=== PATIENT | male | born 1950 | race Caucasian/White ===

== ENCOUNTER 2023-07-09 16:18 | Inpatient (IN) | payer MEDICARE ==
[~2023-07-09] VITALS: Ht 185.4 cm; Wt 91.8 kg
[~2023-07-09 16:18] MED LIST: ASPI-612 PO; DILT-36 PO; LISI40TA13 PO; METF-900 PO; PRAV20TA60 PO
[2023-07-09 17:16] LABS: BASOPHILS # (AUTO) 0.2 X10'3 (0-0.2); BASOPHILS % (AUTO) 0.9 % (0-1); EOSINOPHILS % (AUTO) 0.1 % (0-6); HEMATOCRIT 39.1 % (42.0-52.0); HEMOGLOBIN 13.3 g/dl (14.0-17.9); LYMPHOCYTES # (AUTO) 2.1 X10'3 (1.1-4.8); LYMPHOCYTES % (AUTO) 10.5 % (21-51); MEAN CORPUSCULAR HEMOGLOBIN 30.9 PG (27.0-31.0); MEAN CORPUSCULAR VOLUME 90.8 FL (78-98); MEAN PLATELET VOLUME 8.1 FL (7.4-10.4); MONOCYTES # (AUTO) 1.8 X10'3 (0-0.9); MONOCYTES % (AUTO) 8.8 % (2-12); NEUTROPHILS # (AUTO) 15.8 X10'3 (1.8-7.7); NEUTROPHILS % (AUTO) 79.7 % (42-75); PLATELET COUNT 435 X10'3 (140-440); RED BLOOD COUNT 4.31 X10'6 (4.70-6.10); RED CELL DISTRIBUTION WIDTH 12.5 % (11.5-14.5); WHITE BLOOD COUNT 19.8 X10'3 (4.5-11.0)
[2023-07-09 17:31] LABS: ALANINE AMINOTRANSFERASE 85 U/L (12-78); ALBUMIN/GLOBULIN RATIO 0.7 (1.1-1.5); ALKALINE PHOSPHATASE 109 IU/L (46-116); ANION GAP 18 (8-16); ASPARTATE AMINO TRANSFERASE 45 U/L (10-37); BILIRUBIN,TOTAL 1.1 MG/DL (0.1-1.0); BLOOD UREA NITROGEN 69 MG/DL (7-18); BUN/CREATININE RATIO 29.2 (10.0-20.0); CALCIUM 8.8 MG/DL (8.5-10.1); CHLORIDE 99 MMOL/L (99-107); CREATININE 2.36 MG/DL (0.60-1.10); GLUCOSE 169 MG/DL (70-104); LIPASE 11 U/L (16-77); POTASSIUM 4.2 MMOL/L (3.5-5.1); SODIUM 131 MMOL/L (135-145); TOTAL PROTEIN 7.1 G/DL (6.4-8.2); eCRCL 31 ML/MIN; eGFR 27 ML/MIN
[2023-07-09 18:31] LABS: PLATELET ESTIMATE NORMAL; TOTAL CELLS COUNTED 100
[2023-07-09] MEDS ORDERED: normal saline 1000ml 1,000 ML IV ONE (22:40)
[2023-07-09] MEDS ORDERED: ondansetron/PF 4mg/2ml inj IV ONE (22:40)
[2023-07-09] MEDS ORDERED: morphine 4 MG/ML inj SYRINge IV ONE (22:40)
[2023-07-09] MEDS ORDERED: piperacillin/tazo 4.5gm/100ml 100 ML IV SCH (23:00)
[2023-07-10 01:43] LABS: BILIRUBIN,URINE SMALL (Neg); CLARITY,URINE SLIGHTLY CLOUDY (Clear); COLOR,URINE YELLOW (Yellow); GLUCOSE, URINE NEGATIVE (Neg); KETONES,URINE TRACE mg/dl (Neg); LEUKOCYTE ESTERASE ,URINE NEGATIVE (Neg); NITRITES, URINE NEGATIVE (Neg); OCCULT BLOOD,URINE TRACE-INTACT (Neg); PH,URINE 5.5 (4.8-8.0); PROTEIN,URINE >=300 mg/dl (Neg); UROBILINOGEN,URINE 0.2 E.U/dL (0.2-1.0)
[2023-07-10 01:48] LABS: UA COLLECTION TYPE VOIDED
[2023-07-10 02:05] LABS: MUCUS STRANDS FEW /LPF (Neg); SQUAMOUS EPITHELIAL CELL,UR FEW /LPF (FEW)
[2023-07-10 02:07] LABS: BACTERIA,URINE FEW /HPF (Neg); HYALINE CASTS 0-3 /LPF (NEGATIVE); RBC,URINE 0-2 /HPF (0-2); WBC,URINE 0-4 /HPF (0-4)
[2023-07-10] MEDS ORDERED: metroNIDAZOLE-Flagyl 500mg/NS 100 ML IV STA (03:13)
[2023-07-10] MEDS ORDERED: magnesium 4gm in 100ml NS 100 ML IV PRN (04:35)
[2023-07-10] MEDS ORDERED: potassium Cl 40MEQ/1/2NS 520ml 520 ML IV PRN (04:35)
[2023-07-10] MEDS ORDERED: ondansetron/PF 4mg/2ml inj IV PRN (04:35)
[2023-07-10] MEDS ORDERED: magnesium Cl slow-release 64mg tablet PO PRN (04:35)
[2023-07-10] MEDS: potassium Cl 20mEq in NS 1,000 ML IV SCH ×3 (04:35→23:23)
[2023-07-10] MEDS ORDERED: magnesium 2GM in 50ml NS 50 ML IV PRN (04:35)
[2023-07-10] MEDS ORDERED: acetaminophen 325mg tablet PO PRN (04:35)
[2023-07-10] MEDS ORDERED: potassium Cl 20 mEq SR tablet PO PRN ×2 (04:35)
[2023-07-10] MEDS ORDERED: dextrose 50%-water 50ml dispensing syringe IV PRN (04:40)
[2023-07-10] MEDS ORDERED: insulin Lispro (HumaLOG) vial - multi-dose SQ SCH (04:40)
[2023-07-10] MEDS ORDERED: pantoprazole 40mg IV 80 MG in normal saline 100ml IV soln 100 ML IV ONE (04:40)
[2023-07-10] MEDS ORDERED: glucagon, human recombinant 1mg kit SUBCUT PRN (04:40)
[2023-07-10] MEDS ORDERED: DEXTROSE 15 GM of carb/4 tabs (each vial/BOTTLE has 4 tablets) PO PRN ×2 (04:40)
[2023-07-10] MEDS ORDERED: MESSAGE TO PHARMACY PO ONE (04:40)
[2023-07-10] MEDS ORDERED: pantoprazole 40MG/NS 100ML BAG 100 ML IV ONE ×2 (04:50→05:05)
[2023-07-10] MEDS: K and/or MAG REPLACEMENT MC SCH ×2 (08:00→20:00)
[2023-07-10] MEDS: piperacillin/tazo 3.375gm/50ml 50 ML IV SCH ×3 (08:00→23:22)
[2023-07-10] MEDS ORDERED: metroNIDAZOLE-Flagyl 500mg/NS 100 ML IV SCH (08:00)
[2023-07-10] MEDS ORDERED: GLIM4TAB7 PO (10:01)
[2023-07-10] MEDS ORDERED: CHOL20002 PO (10:01)
[2023-07-10] MEDS ORDERED: ASPI-1264 PO (10:01)
[2023-07-10] MEDS ORDERED: CIME200T95 PO (10:01)
[2023-07-10] MEDS ORDERED: METF-436 PO (10:01)
[2023-07-10 10:53] LABS: ALANINE AMINOTRANSFERASE 73 U/L (12-78); ALBUMIN 2.5 G/DL (3.4-5.0); ALBUMIN/GLOBULIN RATIO 0.7 (1.1-1.5); ALKALINE PHOSPHATASE 86 IU/L (46-116); ANION GAP 14 (8-16); ASPARTATE AMINO TRANSFERASE 29 U/L (10-37); BILIRUBIN,TOTAL 0.8 MG/DL (0.1-1.0); BLOOD UREA NITROGEN 80 MG/DL (7-18); BUN/CREATININE RATIO 28.8 (10.0-20.0); CALCIUM 8.3 MG/DL (8.5-10.1); CHLORIDE 102 MMOL/L (99-107); CREATININE 2.78 MG/DL (0.60-1.10); GLUCOSE 117 MG/DL (70-104); MAGNESIUM 2.1 MG/DL (1.5-2.4); POTASSIUM 4.2 MMOL/L (3.5-5.1); SODIUM 134 MMOL/L (135-145); TOTAL CARBON DIOXIDE 18.4 MMOL/L (24-32); TOTAL PROTEIN 5.9 G/DL (6.4-8.2); eCRCL 26 ML/MIN; eGFR 22 ML/MIN
[2023-07-10] MEDS ORDERED: LISI20TA28 PO (12:35)
--- NOTE | 2023-07-10 15:08 | NUR ---
SPOKE TO DR. NEWMAN ABOUT PT MAINTENANCE FLUIDS. PER MD, CONTINUE POTASSIUM 20MEQ IN 1000ML.
--- NOTE | 2023-07-10 20:19 | NUR ---
Patient provided hospital bed.
[2023-07-10] MEDS ORDERED: insulin glargine (Lantus) pen - multi-dose SQ SCH (21:00)
[2023-07-10 22:10] VITALS: BP 147/71; PULSE 80; RESP 16; TEMP 96.4
[2023-07-11] VITALS: RESP 17
[2023-07-11] MEDS ORDERED: METF-438 PO (03:29)
[2023-07-11 06:00] VITALS: BP 132/85; PULSE 77; RESP 16; TEMP 97; O2SAT 95
--- NOTE | 2023-07-11 06:05 | NUR ---
received report from trevor engel
[2023-07-11 06:25] LABS: MAGNESIUM 2.1 MG/DL (1.5-2.4)
--- NOTE | 2023-07-11 06:30 | NUR ---
Problems reprioritized. Patient report given, questions answered & plan of care reviewed with [facility].
[2023-07-11] MEDS: dextrose 50%-water 50ml dispensing syringe IV PRN ×2 (07:17→17:54)
[2023-07-11] MEDS: pantoprazole 40mg Tablet.DR PO SCH (07:21)
[2023-07-11] MEDS: piperacillin/tazo 3.375gm/50ml 50 ML IV SCH ×3 (07:22→23:23)
[2023-07-11] MEDS: K and/or MAG REPLACEMENT MC SCH ×2 (07:54→20:00)
[2023-07-11] MEDS ORDERED: famotidine 20mg tablet PO PRN (08:45)
[2023-07-11] MEDS ORDERED: aspirin 325mg tablet PO PRN ×2 (08:45→11:00)
[2023-07-11 10:00] VITALS: BP 142/77; PULSE 77; RESP 20; TEMP 97.5; O2SAT 96
[2023-07-11] MEDS ORDERED: pneumococcal 23-VAL P-sac vacc 25 mcg/0.5ml vial IMVAC ONE (10:00)
[2023-07-11 10:19] LABS: BASOPHILS # (AUTO) 0.1 X10'3 (0-0.2); BASOPHILS % (AUTO) 0.4 % (0-1); EOSINOPHILS # (AUTO) 0.1 X10'3 (0-0.9); HEMATOCRIT 35.9 % (42.0-52.0); HEMOGLOBIN 11.9 g/dl (14.0-17.9); LYMPHOCYTES # (AUTO) 2.5 X10'3 (1.1-4.8); LYMPHOCYTES % (AUTO) 17.7 % (21-51); MEAN CORPUSCULAR HEMOGLOBIN 30.7 PG (27.0-31.0); MEAN CORPUSCULAR HGB CONC 33.1 g/dL (33.0-36.5); MEAN CORPUSCULAR VOLUME 92.9 FL (78-98); MEAN PLATELET VOLUME 7.9 FL (7.4-10.4); MONOCYTES # (AUTO) 1.3 X10'3 (0-0.9); MONOCYTES % (AUTO) 9.1 % (2-12); NEUTROPHILS # (AUTO) 10.1 X10'3 (1.8-7.7); NEUTROPHILS % (AUTO) 71.8 % (42-75); PLATELET COUNT 398 X10'3 (140-440); RED BLOOD COUNT 3.87 X10'6 (4.70-6.10); RED CELL DISTRIBUTION WIDTH 12.7 % (11.5-14.5)
[2023-07-11 10:45] LABS: ALANINE AMINOTRANSFERASE 56 U/L (12-78); ALBUMIN 2.4 G/DL (3.4-5.0); ALBUMIN/GLOBULIN RATIO 0.7 (1.1-1.5); ALKALINE PHOSPHATASE 76 IU/L (46-116); ANION GAP 13 (8-16); ASPARTATE AMINO TRANSFERASE 24 U/L (10-37); BILIRUBIN,TOTAL 0.7 MG/DL (0.1-1.0); BLOOD UREA NITROGEN 79 MG/DL (7-18); BUN/CREATININE RATIO 27.5 (10.0-20.0); CALCIUM 8.5 MG/DL (8.5-10.1); CHLORIDE 107 MMOL/L (99-107); CREATININE 2.87 MG/DL (0.60-1.10); GLUCOSE 54 MG/DL (70-104); SODIUM 138 MMOL/L (135-145); eCRCL 25 ML/MIN; eGFR 22 ML/MIN
[2023-07-11 10:49] LABS: POTASSIUM 4.7 MMOL/L (3.5-5.1)
--- NOTE | 2023-07-11 11:14 | NUR ---
DM Consult: Pt hx T2DM A1C 8.0% appropriate given age per ADA guidelines. Pt NPO w/ Glu 58mg/dl this AM s/p D50 per EMR. Do not recommend carb restriction once diet advances given pt stature. Addendum: 07/11/23 at [address] Amended: Links added.
[2023-07-11] MEDS: potassium Cl 20mEq in NS 1,000 ML IV SCH ×2 (13:07→23:23)
--- NOTE | 2023-07-11 18:33 | NUR ---
gave report to trevor mendez
[2023-07-11 19:00] VITALS: BP 158/87; PULSE 84; RESP 16; TEMP 98.1; O2SAT 96
--- NOTE | 2023-07-11 19:34 | NUR ---
notified MD about [address] vivas called back and will look at chart. MD did not seem pt needed more frequent glucose checks. will watch chart for new orders.
[2023-07-11] MEDS ORDERED: metFORMIN 500mg tablet PO SCH (20:00)
[2023-07-11 22:00] VITALS: BP 145/67; PULSE 78; RESP 16; TEMP 97.9; O2SAT 93
--- NOTE | 2023-07-12 03:52 | NUR ---
andrea [id number] - [id number] pt Jimi Bacon. glucose 67. NPO - have to push D50 again (3rd time in 12 hours). can we do something to sustain his glucose levels above 80?
[2023-07-12] MEDS: dextrose 50%-water 50ml dispensing syringe IV PRN (03:57)
[2023-07-12] MEDS ORDERED: potassium Cl 20mEq in D5-NS 1,000 ML IV SCH (04:05)
[2023-07-12 06:26] LABS: BASOPHILS % (AUTO) 0.2 % (0-1); EOSINOPHILS # (AUTO) 0.1 X10'3 (0-0.9); EOSINOPHILS % (AUTO) 1.3 % (0-6); HEMATOCRIT 31.6 % (42.0-52.0); LYMPHOCYTES # (AUTO) 1.6 X10'3 (1.1-4.8); LYMPHOCYTES % (AUTO) 15.1 % (21-51); MEAN CORPUSCULAR HEMOGLOBIN 31.9 PG (27.0-31.0); MEAN CORPUSCULAR HGB CONC 34.8 g/dL (33.0-36.5); MEAN CORPUSCULAR VOLUME 91.5 FL (78-98); MEAN PLATELET VOLUME 7.6 FL (7.4-10.4); MONOCYTES % (AUTO) 9.5 % (2-12); NEUTROPHILS # (AUTO) 7.7 X10'3 (1.8-7.7); NEUTROPHILS % (AUTO) 73.9 % (42-75); PLATELET COUNT 359 X10'3 (140-440); RED BLOOD COUNT 3.45 X10'6 (4.70-6.10); RED CELL DISTRIBUTION WIDTH 12.7 % (11.5-14.5); WHITE BLOOD COUNT 10.4 X10'3 (4.5-11.0)
--- NOTE | 2023-07-12 06:28 | NUR ---
reported to days. noted pt still NPO, watching glucose levels.
--- NOTE | 2023-07-12 06:33 | NUR ---
Patient in room [facility] 4007. I have received report from AZUCENA Willett and had the opportunity to ask questions and assume patient care.
[2023-07-12 06:40] LABS: ALANINE AMINOTRANSFERASE 43 U/L (12-78); ALBUMIN 2.2 G/DL (3.4-5.0); ALBUMIN/GLOBULIN RATIO 0.7 (1.1-1.5); ALKALINE PHOSPHATASE 61 IU/L (46-116); ANION GAP 13 (8-16); ASPARTATE AMINO TRANSFERASE 18 U/L (10-37); BILIRUBIN,TOTAL 0.8 MG/DL (0.1-1.0); BLOOD UREA NITROGEN 56 MG/DL (7-18); BUN/CREATININE RATIO 22.7 (10.0-20.0); CALCIUM 8.3 MG/DL (8.5-10.1); CHLORIDE 110 MMOL/L (99-107); CREATININE 2.47 MG/DL (0.60-1.10); GLUCOSE 111 MG/DL (70-104); MAGNESIUM 1.9 MG/DL (1.5-2.4); POTASSIUM 4.5 MMOL/L (3.5-5.1); SODIUM 139 MMOL/L (135-145); TOTAL CARBON DIOXIDE 16.4 MMOL/L (24-32); TOTAL PROTEIN 5.5 G/DL (6.4-8.2); eCRCL 29 ML/MIN; eGFR 26 ML/MIN
[2023-07-12] MEDS ORDERED: lisinopril 20mg tablet PO SCH (08:00)
[2023-07-12] MEDS ORDERED: cholecalciferol (vitamin D3) 1,000 unit (25mcg) tablet PO SCH (08:00)
[2023-07-12] MEDS ORDERED: METR-159 PO (08:18)
[2023-07-12] MEDS ORDERED: CIPR-202 PO (08:18)
[2023-07-12] MEDS ORDERED: PANT40TA54 PO (08:18)
[2023-07-12] MEDS: pantoprazole 40mg Tablet.DR PO SCH (08:43)
[2023-07-12 08:45] VITALS: BP_SYST 155; PULSE 78
[2023-07-12] MEDS: piperacillin/tazo 3.375gm/50ml 50 ML IV SCH (08:46)
--- NOTE | 2023-07-12 10:50 | NUR ---
pt was given discharge packet and IV was discontinued and intact. Pt left in wheelchair with all of his belongings and in no distress. Pt left in private vehicle with his spouse.
== END 2023-07-12 10:32 | disposition home or self-care (01) | DRG 640 ==
LOC: ER 16:19 → ED HOLD 07-10 04:38 → ORTHO 4S 07-10 21:55
PROVIDERS: ADMIT Internal Medicine; ATTEND Internal Medicine
DX: E86.0 Dehydration (principal); N17.0 Acute kidney failure with tubular necrosis; K52.9 Noninfective gastroenteritis and colitis, unspecified; D72.829 Elevated white blood cell count, unspecified; I25.10 Atherosclerotic heart disease of native coronary artery without angina pectoris; E11.9 Type 2 diabetes mellitus without complications; I10 Essential (primary) hypertension; Z79.899 Other long term (current) drug therapy; Z79.84 Long term (current) use of oral hypoglycemic drugs; Z79.82 Long term (current) use of aspirin
CPT/HCPCS: 36415; 71045; 74176; 76700; 80053; 81001; 82948; 83036; 83605; 83690; 83735; 84484; 85007; 85025; 87040; 87081; 90732; 96374; 96375; 99285; C9113; G0378; J1815; J2270; J2405; J2543; J3480; J3490; J7030

== ENCOUNTER 2024-05-23 15:18 | Outpatient (CLI) | payer MEDICARE ==
[~2024-05-23 15:18] MED LIST changes: +ASPI-1264 PO; -ASPI-612 PO; +CHOL20002 PO; -DILT-36 PO; +GLIM4TAB7 PO; +LISI20TA28 PO; -LISI40TA13 PO; +METF-438 PO; -METF-900 PO; +PANT40TA54 PO; -PRAV20TA60 PO
== END 2024-05-23 23:59 | disposition home or self-care (01) ==
LOC: CARD DIAG 15:18
PROVIDERS: ATTEND Nurse Practitioner Family
DX: I08.8 Other rheumatic multiple valve diseases (principal); R01.1 Cardiac murmur, unspecified
CPT/HCPCS: 93306